=== PATIENT | male | born 1980 | race Caucasian/White ===

== ENCOUNTER 2022-06-09 10:52 | Emergency (ER) | payer OTHER ==
[~2022-06-09] VITALS: Ht 172.7 cm; Wt 108.4 kg
[2022-06-09] MEDS ORDERED: IBUP80TA PO (11:41)
[2022-06-09] MEDS ORDERED: FLUT1BLS5 INH (11:41)
[2022-06-09] MEDS ORDERED: ALBU8.5H AD (11:41)
[2022-06-09] MEDS ORDERED: MONT10TA97 PO (11:41)
[2022-06-09 11:46] LABS: BASO % 0.2 % (0.0-1.0); EOS # 0.1 10^3/uL (0.0-0.5); EOS % 0.9 % (0.0-3.0); HEMATOCRIT 42.8 % (42.0-52.0); HEMOGLOBIN 15.4 g/dl (13.5-17.5); LYMPH # 1.3 10^3/uL (1.5-5.0); MEAN CORPUSCULAR HEMOGLOBIN 31.7 pg (27.0-33.0); MEAN CORPUSCULAR VOLUME 88.1 fl (80.0-96.0); MONO # 0.9 10^3/uL (0.0-0.8); MONO % 7.4 % (2.0-8.0); NEUTROPHILS # 9.8 10^3/uL (1.5-8.5); NEUTROPHILS % 80.2 % (36.0-66.0); PLATELET COUNT, AUTOMATED 228 10^3/uL (150-450); RED BLOOD COUNT 4.86 10^6/uL (4.30-6.10); WHITE BLOOD COUNT 12.2 10^3/uL (4.0-10.0)
[2022-06-09 12:15] LABS: ALBUMIN 3.9 GM/DL (3.2-5.2); BILIRUBIN,DIRECT 0.3 MG/DL (0.0-0.2); TOTAL PROTEIN 7.2 GM/DL (6.4-8.2)
[2022-06-09] MEDS ORDERED: PERCOCET 5MG/325MG TAB PO ONE (12:50)
[2022-06-09] MEDS ORDERED: ONDANSETRON 4MG ORAL DISINTEGRATING TAB PO ONE (12:50)
[2022-06-09] MEDS ORDERED: KETOROLAC 30 MG/ML 1ML VIAL IV ONE (14:00)
[2022-06-09] MEDS ORDERED: PERC5TAB12 PO (14:34)
[2022-06-09] MEDS ORDERED: CEFD300C41 PO (14:34)
[2022-06-09] MEDS ORDERED: ONDA4TAB6 PO (14:34)
[2022-06-09] MEDS ORDERED: FLOM0.4C39 PO (14:34)
[2022-06-09 14:56] VITALS: BP 156/86
== END 2022-06-09 14:57 | disposition home or self-care (01) ==
LOC: M ED 10:52
DX: N20.1 Calculus of ureter (principal); J45.909 Unspecified asthma, uncomplicated
CPT/HCPCS: 74176; 80047; 80076; 81001; 83690; 85025; 96374; 99284; J1885